=== PATIENT | female | born 1985 | race Caucasian/White ===

== ENCOUNTER 2018-08-06 20:15 | Emergency (ER) | payer SELFPAY ==
[2018-08-06 20:28] VITALS: BP 151/85
--- NOTE | 2018-08-06 20:43 | UC ---
Dental HPI - HPI Summary HPI Summary: 33-year-old female with complaint of left lower jaw pain and ear pain for the last 3 months off and on presents today with the same. She states that [facility] and told it might be TMJ syndrome. She's been taking ibuprofen for it without much help. She has no dental insurance and hasn't seen a dentist. She denies fever, facial swelling, loss of hearing. - History of Current Complaint Chief Complaint: UCDentalProblem Stated Complaint: DENTAL Time Seen by Provider: 08/06/18 20:23 Hx Obtained From: Patient Hx Last Menstrual Period: 08/05/18 Pain Intensity: 10 - Allergies/Home Medications Allergies/Adverse Reactions: Allergies Allergy/AdvReac Type Severity Reaction Status Date / Time amoxicillin Allergy Hives/Diff. 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 Alcohol Use: Occasionally Substance Use Type: None Smoking Status (MU): Never Smoked Tobacco Review of Systems All Other Systems Reviewed And Are Negative: Yes Constitutional: Negative: Fever Skin: Positive: Negative ENT: Positive: Dental Pain, Ear Ache Respiratory: Positive: Negative Cardiovascular: Positive: Negative Physical Exam Appearance: Well-Appearing, No Pain Distress, Well-Nourished Vital Signs: Initial Vital Signs Temp 98.2 F 08/06/18 20:24 Pulse 100 08/06/18 20:24 Resp 16 08/06/18 20:24 BP 151/85 08/06/18 20:24 Pulse Ox 100 08/06/18 20:24 Eye Exam: Normal ENT: Positive: Hearing grossly normal, Pharynx normal, TMs normal, Other - No crepitance or pain at the TMJ. She has tenderness in the left angle of the mandible and widespread dental erosions mostly in the molars. There are no third molars however she states these have not been removed.. Negative: Nasal congestion Dental: Positive: Other: - Tenderness in the gingiva adjacent to the left lower second molar which is heavily caried. The first molar is eroded to the gumline Neck: Positive: Nontender, No Lymphadenopathy Respiratory: Positive: Lungs clear Cardiovascular: Positive: RRR Musculoskeletal: Positive: ROM Intact Neurological: Positive: Alert Skin Exam: Normal Dental Complaint Course/Dx - Course Course Of Treatment: Patient states that she has not had her third molars removed however they're unable to be palpated. She has had multiple extractions in the past and has multiple active caries. She'll be treated as possible dental abscess and referred to dental. A list of dental clinics was provided to her. - Differential Dx/Diagnosis Provider Diagnosis: Active dental caries, Dental abscess Discharge - Sign-Out/Discharge Documenting (check all that apply): Patient Departure All imaging exams completed and their final reports reviewed: No Studies - Discharge Plan Condition: Improved Disposition: HOME Prescriptions: Chlorhexidine Gluconate [Periogard] 10 ml SWISH SPIT TID #1 bottle Clindamycin Cap(NF) [Clindamycin Cap 300 mg Cap(NF)] 300 mg PO TID #30 cap Naproxen [Naproxen 500 mg tab] 500 mg PO BID PRN #14 tablet PRN Reason: Pain Patient Education Materials: Toothache (ED) Referrals: Elysia Amezquita MD [Primary Care Provider] - Additional Instructions: Dental referral page has been given to you. Call them to follow-up as soon as possible. Return with fever, facial swelling, worse or other concerns. - Billing Disposition and Condition Condition: IMPROVED Disposition: Home
== END 2018-08-06 20:48 | disposition home or self-care (01) ==
LOC: UCEAST 20:15
DX: K02.9 Dental caries, unspecified (principal); K04.7 Periapical abscess without sinus; Z88.0 Allergy status to penicillin; Z88.2 Allergy status to sulfonamides
CPT/HCPCS: 99202; G0463

== ENCOUNTER 2020-06-07 17:01 | Inpatient (IN) ==
[2020-06-07] MEDS ORDERED: Buffered Lidocaine 1% SYRIN 1 ml INTRADERM ONE ×3 (18:03→22:19)
[2020-06-07 18:57] LABS: ABS Lymphocytes 2.2 10^3/ul (1.0-4.8); ABS Monocytes 0.7 10^3/ul (0-0.8); ABS Neutrophils 9.1 10^3/ul (1.5-7.7); Eosinophil % 0.2 %; Hematocrit 30 % (35-47); Hemoglobin 9.8 g/dL (12.0-16.0); Lymphocyte % 18.4 %; Mean Corpuscular HGB Conc 32 g/dL (31-36); Mean Corpuscular Hemoglobin 25 pg (27-31); Mean Corpuscular Volume 79 fL (80-97); Nucleated Red Blood Cells % 0.1; Platelet Count 216 10^3/uL (150-450); Red Blood Count 3.84 10^6 /uL (3.70-4.87); Red Cell Distribution Width 15 % (10-15); White Blood Count 12.1 10^3/uL (3.5-10.8)
[2020-06-07 19:23] LABS: Urine Appearance Clear; Urine Bilirubin Negative (Negative); Urine Blood Negative (Negative); Urine Color Colorless; Urine Glucose Negative (Negative); Urine Ketones Negative (Negative); Urine Nitrite Negative (Negative); Urine Protein Negative (Negative); Urine Specific Gravity 1.001 (1.010-1.030); Urine Urobilinogen Negative (Negative)
[2020-06-07 19:40] LABS: Albumin 3.9 g/dL (3.2-5.2); Albumin/Globulin Ratio 1.2 (1-3); BUN/Creatinine Ratio 8.7 (8-20); Calcium 9.4 mg/dL (8.6-10.3); EGFR African American 188.2 (>60); EGFR Non-African American 155.5 (>60); Globulin 3.3 g/dL (2-4); Potassium 3.5 mmol/L (3.5-5.0); Total Bilirubin 0.4 mg/dL (0.2-1.0); Total Protein 7.2 g/dL (6.4-8.9); Uric Acid 3.8 mg/dL (2.3-6.6)
[2020-06-07 19:53] LABS: Urine Benzodiazepine Screen None Detected (None Detect); Urine Cannabinoids Screen None Detected (None Detect); Urine Opiates Screen None Detected (None Detect)
[2020-06-07] MEDS ORDERED: Lactated Ringers 1000 ml BAG 1,000 ML IV ONE (22:19)
[2020-06-07] MEDS ORDERED: Lactated Ringers 1000 ml BAG 1,000 ML IV SCH (23:00)
[2020-06-07] MEDS: Oxytocin in LR 20 UNITS/1,000 ML BAG IVPB SCH (23:04)
[2020-06-08] MEDS ORDERED: OBEPIDURAL 250 ML EPIDURAL ONE (11:01)
[2020-06-08] MEDS ORDERED: Lactated Ringers 1000 ml BAG 1,000 ML IV ONE (11:56)
[2020-06-08] MEDS ORDERED: EPHEDrine (Pressors) 50 MG/ML VIAL IV PUSH PRN ×2 (11:56)
[2020-06-08] MEDS ORDERED: Phenylephrine 40 mcg/mL 10mL (400mcg) SYRINGE IV PUSH PRN ×2 (11:56)
[2020-06-08] MEDS ORDERED: Sodium Citrate/Citric Acid LIQ 15 ML UDC PO PRN (11:56)
[2020-06-08] MEDS ORDERED: OBEPIDURAL 250 ML EPIDURAL SCH (12:00)
[2020-06-08] MEDS ORDERED: Lactated Ringers 1000 ml BAG 1,000 ML IV SCH ×2 (12:00→21:00)
[2020-06-08] MEDS: Oxytocin in LR 20 UNITS/1,000 ML BAG IVPB SCH (15:52)
[2020-06-08] MEDS ORDERED: Bupivacaine 0.25% SDV PF 10 ML VIAL INJ ONE (18:22)
[2020-06-08] MEDS ORDERED: Dibucaine 1% OINT 28.35 GM TUBE PR PRN (20:05)
[2020-06-08] MEDS ORDERED: Glycerin ADULT 2.4 gm SUPP PR PRN (20:05)
[2020-06-08] MEDS ORDERED: Witch Hazel PAD JAR TOPICAL PRN (20:05)
[2020-06-08] MEDS ORDERED: Oxytocin in LR 20 UNITS/1,000 ML BAG IVPB SCH (21:00)
[2020-06-09 08:15] LABS: ABS Eosinophils 0.1 10^3/ul (0-0.6); ABS Lymphocytes 2.5 10^3/ul (1.0-4.8); ABS Monocytes 0.9 10^3/ul (0-0.8); ABS Neutrophils 9.2 10^3/ul (1.5-7.7); Eosinophil % 0.7 %; Hematocrit 24 % (35-47); Hemoglobin 7.8 g/dL (12.0-16.0); Lymphocyte % 19.6 %; Mean Corpuscular HGB Conc 32 g/dL (31-36); Mean Corpuscular Hemoglobin 26 pg (27-31); Mean Corpuscular Volume 80 fL (80-97); Mean Platelet Volume 9.9 fL (7.4-10.4); Platelet Count 172 10^3/uL (150-450); Red Blood Count 3.03 10^6 /uL (3.70-4.87); Red Cell Distribution Width 15 % (10-15); White Blood Count 12.8 10^3/uL (3.5-10.8)
[2020-06-09] MEDS ORDERED: RHO D Immune Globulin (HUMAN) 300 MCG = 1,500 I.U. INJ IM ONE (14:52)
[2020-06-09 20:05] VITALS: BP 154/92
== END 2020-06-09 20:25 | disposition home or self-care (01) | DRG 560 ==
LOC: MCHOBOUT 17:01 → MCHOB 22:21
PROVIDERS: ADMIT Obstetrics & Gynecology; ATTEND Obstetrics & Gynecology